=== PATIENT | male | born 1950 | race Caucasian/White ===

== ENCOUNTER → 2017-04-30 | Day surgery (SDC) | payer BC, MEDICARE ==
[~2017-04-30] MED LIST: DICL75TA PO; GABA-586 PO; HYDROmorphone 2 MG/ML VIAL IV PRN; IV RINGERS,LACTATED 1000ML 1,000 ML IV SCH; LIDOCAINE 1% PF 2 ML VIAL. ID PRN; METF500T4 PO; MORPHINE SULFATE 4 MG/ML DISP.SYRIN. IV PRN; ONDANSETRON PF 4 MG/2 ML VIAL. IV PRN; PROCHLORPERAZINE 10 MG/2 ML VIAL. IV PRN; PROPOFOL 20 ML IV ONE; TERB250T8 PO; fentaNYL PF VIAL 100 MCG/2 ML VIAL IV PRN
[2017-04-30 08:02] VITALS: BP 138/78
== END | disposition home or self-care (01) ==
LOC: ENDOS 06:35
PROVIDERS: ATTEND Internal Medicine Gastroenterology
DX: Z12.11 Encounter for screening for malignant neoplasm of colon (principal); K64.0 First degree hemorrhoids; E11.9 Type 2 diabetes mellitus without complications; E03.9 Hypothyroidism, unspecified; Z86.69 Personal history of other diseases of the nervous system and sense organs; Z87.39 Personal history of other diseases of the musculoskeletal system and connective tissue; Z86.39 Personal history of other endocrine, nutritional and metabolic disease
CPT/HCPCS: 45378; J2704

== ENCOUNTER → 2017-11-04 | Outpatient (CLI) | payer BC, MEDICARE | END | disposition home or self-care (01) | LOC: US 10:42 | DX: I73.9 Peripheral vascular disease, unspecified (principal); E03.9 Hypothyroidism, unspecified; E11.9 Type 2 diabetes mellitus without complications; E78.5 Hyperlipidemia, unspecified | CPT/HCPCS: 93922; 93925 ==

== ENCOUNTER → 2019-01-21 | Outpatient (CLI) | payer BC ==
[2017-04-30 08:02] VITALS: BP 138/78
[~2019-01-21] MED LIST changes: -GABA-586 PO; +GABA300C18 PO; -HYDROmorphone 2 MG/ML VIAL IV PRN; -IV RINGERS,LACTATED 1000ML 1,000 ML IV SCH; -LIDOCAINE 1% PF 2 ML VIAL. ID PRN; +METF500T16 PO; -METF500T4 PO; -MORPHINE SULFATE 4 MG/ML DISP.SYRIN. IV PRN; -ONDANSETRON PF 4 MG/2 ML VIAL. IV PRN; -PROCHLORPERAZINE 10 MG/2 ML VIAL. IV PRN; -PROPOFOL 20 ML IV ONE; +TERB250T11 PO; -TERB250T8 PO; -fentaNYL PF VIAL 100 MCG/2 ML VIAL IV PRN
--- NOTE | 2019-01-21 11:29 | KCIC ---
EXAM: Right shoulder, 3 views. HISTORY: Pain and popping. COMPARISON: None. FINDINGS: 3 views of the right shoulder obtained. There is severe marginal osteophytosis along the inferior humeral head. There is degenerative subchondral sclerosis involving the glenoid and superior humeral head. There are small inferiorly directed acromial and distal clavicular spurs. There is no fracture. There are few calcified granulomas within the visualized lung and right hilum. IMPRESSION: 1. Severe glenohumeral osteoarthritis. 2. Mild to moderate acromioclavicular osteoarthritis with subacromial and inferiorly directed distal clavicular spurs. Electronically signed by: Kristie King MD (01/21/2019 11:26 AM) [id number]
== END | disposition home or self-care (01) ==
LOC: KCIC 10:18
PROVIDERS: ATTEND Physician Assistant Medical
DX: M19.011 Primary osteoarthritis, right shoulder (principal); M25.711 Osteophyte, right shoulder; J84.10 Pulmonary fibrosis, unspecified
CPT/HCPCS: 73030

== ENCOUNTER → 2020-04-28 | Outpatient (CLI) | payer BC ==
[2017-04-30 08:02] VITALS: BP 138/78
[~2020-04-28] MED LIST changes: +HYDR-3165 PO; -TERB250T11 PO; +TERB250T84 PO
== END ==
LOC: LAB 13:26
PROVIDERS: ATTEND Orthopaedic Surgery
DX: Z01.812 Encounter for preprocedural laboratory examination (principal); Z20.828 Contact with and (suspected) exposure to other viral communicable diseases
CPT/HCPCS: U0003

== ENCOUNTER 2020-05-02 07:08 | Day surgery (SDC) | payer BC ==
[~2020-05-02] VITALS: Ht 182.9 cm; Wt 142.9 kg
[~2020-05-02 07:08] MED LIST changes: -HYDR-3165 PO; +HYDROmorphone 2 MG/ML VIAL IV PRN; +IV RINGERS,LACTATED 1000ML 1,000 ML IV SCH; +MORPHINE SULFATE 2 MG/ML VIAL. IV PRN; +ONDANSETRON PF 4 MG/2 ML VIAL. IV PRN; +PROCHLORPERAZINE 10 MG/2 ML VIAL. IV PRN; +fentaNYL PF VIAL 100 MCG/2 ML VIAL IV PRN
[2020-05-02] MEDS ORDERED: INSULIN LISPRO 100 UNIT/ML 3ML VIAL for OP,RR ONLY. SQ PRN (08:00)
[2020-05-02 08:04] LABS: BASO # 0.1 x10^3/uL (0.0-0.2); BASO % 1 % (0-3); EOS # 0.2 x10^3/uL (0.0-0.7); EOS % 3 % (0-3); HEMATOCRIT 44.3 % (39.0-53.0); LYMPH # 1.4 x10^3/uL (1.0-4.8); LYMPH % 18 % (24-48); MEAN CORPUSCULAR HEMOGLOBIN 31 pg (25-35); MEAN CORPUSCULAR HGB CONC 34 g/dL (31-37); MEAN CORPUSCULAR VOLUME 91 fL (79-100); MONO # 0.7 x10^3/uL (0.0-1.1); MONO % 9 % (0-9); NEUT # 5.3 x10^3/uL (1.8-7.7); NEUT % 69 % (31-73); PLATELET COUNT 168 x10^3/uL (140-400); RED BLOOD COUNT 4.87 x10^6/uL (4.30-5.70); RED CELL DISTRIBUTION WIDTH 13.7 % (11.5-14.5); WHITE BLOOD COUNT 7.8 x10^3/uL (4.0-11.0)
[2020-05-02 08:13] LABS: CREATININE 1.1 mg/dL (0.7-1.3); GFR 66.4; POTASSIUM 4.3 mmol/L (3.5-5.1)
[2020-05-02] MEDS ORDERED: fentaNYL PF VIAL 100 MCG/2 ML VIAL ONE (08:26)
[2020-05-02] MEDS ORDERED: MIDAZOLAM HCL/PF 2 MG/2 ML VIAL. ONE (08:27)
[2020-05-02] MEDS ORDERED: 0.9 % SODIUM CHLORIDE 20 ML VIAL. IJ ONE ×2 (08:30)
[2020-05-02] MEDS ORDERED: LIDOCAINE 2% PF 5 ML VIAL. ONE ×3 (08:30→08:31)
[2020-05-02] MEDS ORDERED: BUPIVACAINE MPF 0.25% 30 ML VIAL. ONE (08:36)
[2020-05-02] MEDS ORDERED: HYDR-3165 PO (08:52)
--- NOTE | 2020-05-02 08:53 | DISCH ---
SRIDHAR BAKER MD May 02, 2020 08:53
--- NOTE | 2020-05-02 08:56 | DISCH ---
DISCHARGE INSTRUCTIONS Condition on Discharge Condition on Discharge: Stable Activity After Discharge Activity Instructions for Disc: Other, see below (Avoid hard grasp, fine motor use tolerated such as eating writing typing) Weight Bearing Status after Di: As tolerated Diet after Discharge Diet after Discharge: Cardiac Wound Incision Care Wound/Incision Care: Ice to area for comfort, Keep wound elevated, Do not change dressing (Keep dressing on and dry during shower or bathing and remove only if soiled) Contacting the DRNichole after DC Call your doctor for: Concerns you may have Follow-Up Follow up with: Dr. Gomes 10 days SRIDHAR GOMES MD May 02, 2020 08:56
--- NOTE | 2020-05-02 08:59 | PREOP HP ---
DATE OF SERVICE: 05/02/2020 PREOPERATIVE DIAGNOSIS: Bilateral hand pain and numbness. HISTORY OF PRESENT ILLNESS: The patient is having bilateral hand pain, weakness, difficulty taking lids off a jar, he is right hand dominant and has EMG testing showing moderate carpal tunnel in both hands that has been unresponsive to nonoperative treatment. PAST MEDICAL HISTORY: Significant for Tidwell's palsy, sleep apnea, sciatica, borderline diabetes and pityriasis rosea. PAST SURGICAL HISTORY: Lumbar disk surgery in the remote past. FAMILY HISTORY: He denies any family history. SOCIAL HISTORY: He is a former smoker. Occasional alcohol use. Denies drug use. ALLERGIES: He has no known drug allergies. MEDICATIONS: List is reviewed. REVIEW OF SYSTEMS: Negative for any recent illness, chest pain, shortness of breath or constitutional symptoms. PHYSICAL EXAMINATION: GENERAL: Height 72 inches, weight 315 pounds. VITAL SIGNS: Per admission sheet. HEENT: Atraumatic, normocephalic. HEART: Regular rate and rhythm. LUNGS: Clear to auscultation bilaterally. ABDOMEN: Benign. EXTREMITIES: Examination of upper extremity reveals paresthesia over the median nerve distribution on both hands. No thenar atrophy is noted. Flexor superficialis profundus and extensor function is intact bilaterally. EMG testing shows carpal tunnel syndrome moderate of bilateral wrists. IMPRESSION: Left wrist pain and carpal tunnel syndrome. TREATMENT PLAN: He wishes to proceed with his left carpal tunnel release first. We had previously discussed risks, benefits, postoperative course including possibility of infection, incisional pain, nerve or blood vessel damage, medical or other anesthetic complications and the fact that we can just release the pressure on the nerve and other than that the body has to grow the insulation back to the extent that it will, so recovery may be incomplete. We had also discussed postoperative restrictions in terms of his grasp strength, etc. He wishes to proceed with surgical evaluation and treatment, having given informed consent today. SRIDHAR BAKER MD DR: FLAVIO/mauri JOB#: [id number] / [id number]
[2020-05-02] MEDS ORDERED: HYDROcodone/APAP 7.5/325MG 1 TAB TABLET PO ONE (09:45)
[2020-05-02 09:55] VITALS: BP 127/73
--- NOTE | 2020-05-02 10:58 | PDOC4 ---
Operative Note Operative Note Date of surgery: 05/02/2020 Preoperative diagnosis: Left carpal tunnel syndrome Postoperative diagnosis: Same with moderate median nerve compression Operative procedure: Left carpal tunnel release Surgeon: Eliseo Anesthesia: [place] block Estimated blood loss: 1 cc Complications: None Operative indications: Please see my dictated orthopedic consultation for detailed operative indications and note that he does have EMG confirmed symptomatic carpal tunnel in both hands. We had talked through the risks benefits postoperative course including possibility of incisional tenderness incomplete relief infection nerve or blood vessel damage medical or other anesthetic complications among others. He agrees to proceed with surgical evaluation and treatment. Operative text: Patient was identified procedure verified patient placed in the supine position on the operating table. After adequate amounts of [place] block anesthesia were administered the left upper extremity was prepped and draped in standard sterile fashion. After timeout was performed patient procedure identified and verified a longitudinal incision was made just distal to the distal wrist crease. Dissection carried out down to the transverse carpal ligament which was divided sharply under direct vision with a scalpel and divided proximally and distally through its entire length with a blunt pair of tenotomy scissors. No synovitis was noted in the carpal tunnel and tendons were intact. The median nerve was noted to have moderate compression and the recurrent branch identified intact. Irrigation carried out normal saline solution a total of 12 cc of half percent plain Marcaine were instilled around the incision site and closure accomplished with 3-0 nylon suture in a vertical mattress fashion. Sterile soft dressings were applied fingers were noted to be warm pink following deflation of the tourniquet patient was returned to recovery room in stable condition having tolerated procedure well SRIDHAR BAKER MD May 02, 2020 10:58
== END 2020-05-02 11:00 | disposition home or self-care (01) ==
LOC: SURG 07:08
PROVIDERS: ATTEND Orthopaedic Surgery
DX: G56.02 Carpal tunnel syndrome, left upper limb (principal); E11.9 Type 2 diabetes mellitus without complications; E03.9 Hypothyroidism, unspecified; G47.30 Sleep apnea, unspecified; E66.9 Obesity, unspecified; K21.9 Gastro-esophageal reflux disease without esophagitis; Z79.899 Other long term (current) drug therapy; Z98.890 Other specified postprocedural states; Z72.89 Other problems related to lifestyle; Z68.41 Body mass index [BMI] 40.0-44.9, adult
CPT/HCPCS: 36415; 64721; 80048; 85025; J0690; J2250; J3010; J3490

== ENCOUNTER → 2021-09-04 | Outpatient (CLI) | payer BC ==
[~2021-09-04] MED LIST changes: +HYDR-3165 PO; -HYDROmorphone 2 MG/ML VIAL IV PRN; -IV RINGERS,LACTATED 1000ML 1,000 ML IV SCH; -MORPHINE SULFATE 2 MG/ML VIAL. IV PRN; -ONDANSETRON PF 4 MG/2 ML VIAL. IV PRN; -PROCHLORPERAZINE 10 MG/2 ML VIAL. IV PRN; +TERB250T72 PO; -TERB250T84 PO; -fentaNYL PF VIAL 100 MCG/2 ML VIAL IV PRN
--- NOTE | 2021-09-05 10:38 | KCIC ---
XR HAND 3 VIEWS History: Reason: Chronic bilateral hand pain. / Spl. Instructions: Carpal tunnel surgery Lt. hand, pi an, swelling 2nd Rt. digit. / History: Technique: 3 views bilateral hands Comparison: None. Findings: Left hand: No dislocation. No acute fracture. Mild first carpal metacarpal triscaphe DJD. Mild distal radial ulnar DJD. Chondrocalcinosis within the wrist. Polyarticular distal phalangeal degenerative c hanges most prominent moderate second distal interphalangeal joint. Mild second and third metacarpoph alangeal joint joint space narrowing and irregularity. Right hand: No dislocation. No acute fracture. Mild chondrocalcinosis within the wrist. Mild polyarti cular degenerative changes within the distal interphalangeal joints. Mild second and third metacarpal phalangeal joint space narrowing and irregularity. Impression: 1. Bilateral second and third metacarpophalangeal joint changes, can be seen with inflammatory arthr opathy. 2. Overall osteoarthritic pattern with involvement of the distal interphalangeal joints and wrist in cluding chondrocalcinosis, right greater than left. Electronically signed by: Mervin Kemp DO (09/05/2021 10:36 AM) [id number]
== END ==
LOC: KCIC 10:46
PROVIDERS: ATTEND Physician Assistant Medical
DX: M19.041 Primary osteoarthritis, right hand (principal); M19.042 Primary osteoarthritis, left hand; M11.241 Other chondrocalcinosis, right hand; M25.841 Other specified joint disorders, right hand; M25.842 Other specified joint disorders, left hand
CPT/HCPCS: 73130-50